=== PATIENT | female | born 1990 | race African-American/Black ===

== ENCOUNTER 2020-03-29 14:13 | Inpatient (IN) | payer OTHER, MEDICAID ==
[~2020-03-29] VITALS: Ht 170.2 cm; Wt 67.6 kg
[2020-03-29] MEDS ORDERED: METHYLPREDNISOLONE SOD SUCC 125 MG/2 ML VIAL IV STA (14:31)
[2020-03-29] MEDS ORDERED: IPRATROPIUM BROMIDE (0.02%) 0.5MG/2.5ML NEB HHN STA (14:31)
[2020-03-29] MEDS ORDERED: MAGNESIUM 2 G PREMIX 50 ML IV ONE (14:45)
[2020-03-29 14:56] LABS: CHLORIDE 108 mEq/L (98-107)
[2020-03-29] MEDS ORDERED: POTASSIUM CHLORIDE INJ 40 MEQ in DEXT 5% WATER 250 ML IV ONE (15:00)
[2020-03-29 15:09] LABS: HEMATOCRIT. 43.8 % (36.0-48.0); HEMOGLOBIN. 13.9 g/dL (12.0-16.0); MEAN CORPUSCULAR HEMOGLOBIN 27.5 pg (28.0-32.0); MEAN CORPUSCULAR VOLUME 86.3 fL (81.0-99.0); MEAN PLATELET VOLUME 9.9 fl (7.4-10.4); PLATELET 354 x1000/uL (130-400); PROTHROMBIN TIME 10.9 sec (9.6-11.0); RED BLOOD CELL COUNT 5.07 mill/uL (4.2-5.4); RED CELL DISTRIBUTION WIDTH 12.8 % (11.6-14.6)
[2020-03-29 15:24] LABS: BG BASE EXCESS -9.9 mmol/L (-2.0-2.0); BG CARBOXYHEMOGLOBIN 0.1 % (0.5-1.5); BG DEOXYHEMOGLOBIN 0.2 % (0.0-5.0); BG FRACTION INSPIRED OXYGEN 100; BG METHEMOGLOBIN 0.5 % (0.0-1.5); BG OXYGEN SATURATION 99.8 % (92.0-98.5); BG OXYHEMOGLOBIN 99.2 % (94.0-97.0); BG PCO2 47.3 mmHg (35.0-45.0); BG PH 7.199 (7.350-7.450); BG PO2 460.7 mmHg (75.0-100.0); BG SAMPLE SITE RIGHT RADIAL; BG TOTAL HEMOGLOBIN 14.3 g/dL (12.0-18.0); BG TOTAL RESPIRATORY RATE 37 b/min; BG VENT MODE MASK - BIPAP
[2020-03-29] MEDS ORDERED: SODIUM CHLORIDE 0.9% 1,000 ML IV ONE ×2 (15:30)
[2020-03-29 15:56] LABS: PLATELET ESTIMATE NORMAL
[2020-03-29] MEDS: ALBUTEROL (0.083%) 2.5MG/3ML NEB HHN SCH ×7 (16:00→19:04)
[2020-03-29] MEDS ORDERED: MORPHINE SULFATE 4 MG/ML CPJ (NOT FOR IM USE) IV ONE (16:45)
[2020-03-29] MEDS ORDERED: LORAZEPAM 2MG/ML CPJ IV ONE (17:00)
[2020-03-29 18:16] LABS: BG BASE EXCESS -12.5 mmol/L (-2.0-2.0); BG CARBOXYHEMOGLOBIN 0.3 % (0.5-1.5); BG DEOXYHEMOGLOBIN 0.8 % (0.0-5.0); BG FRACTION INSPIRED OXYGEN 60; BG HCO3 ACT 16.3 mmol/L (22.0-26.0); BG METHEMOGLOBIN 0.4 % (0.0-1.5); BG OXYGEN SATURATION 99.2 % (92.0-98.5); BG OXYHEMOGLOBIN 98.5 % (94.0-97.0); BG PH 7.141 (7.350-7.450); BG PO2 209.1 mmHg (75.0-100.0); BG SAMPLE SITE RIGHT RADIAL; BG TOTAL HEMOGLOBIN 13.5 g/dL (12.0-18.0); BG VENT MODE MASK - BIPAP
[2020-03-29] MEDS ORDERED: EPINEPHRINE 1:1000 1 MG/ML AMP IM ONE (18:30)
[2020-03-29] MEDS ORDERED: AZITHROMYCIN 500 MG in DEXT 5% WATER 250 ML IV SCH (19:00)
[2020-03-29] MEDS ORDERED: GUAIFENESIN 200MG/10ML SUGAR FREE UDC PO PRN (19:00)
[2020-03-29] MEDS ORDERED: CLONIDINE 0.1MG TABLET PO PRN (19:00)
[2020-03-29] MEDS ORDERED: POTASSIUM CHLORIDE 20MEQ TABLET SR PO NR (19:00)
[2020-03-29] MEDS ORDERED: ACETAMINOPHEN 325MG TABLET PO PRN (19:00)
[2020-03-29] MEDS ORDERED: ONDANSETRON HCL 4MG/2ML INJ IV PRN (19:00)
[2020-03-29 19:02] LABS: BG BASE EXCESS -13.4 mmol/L (-2.0-2.0); BG CARBOXYHEMOGLOBIN 0.3 % (0.5-1.5); BG DEOXYHEMOGLOBIN 0.8 % (0.0-5.0); BG FRACTION INSPIRED OXYGEN 60; BG METHEMOGLOBIN 0.6 % (0.0-1.5); BG OXYGEN SATURATION 99.2 % (92.0-98.5); BG OXYHEMOGLOBIN 98.3 % (94.0-97.0); BG PCO2 43.8 mmHg (35.0-45.0); BG PH 7.152 (7.350-7.450); BG PO2 196.4 mmHg (75.0-100.0); BG SAMPLE SITE RIGHT RADIAL; BG TOTAL HEMOGLOBIN 13.7 g/dL (12.0-18.0); BG TOTAL RESPIRATORY RATE 39 b/min; BG VENT MODE HIGH FLOW
[2020-03-29] MEDS: METHYLPREDNISOLONE SOD SUCC 125 MG/2 ML VIAL IV SCH (20:42)
[2020-03-29] MEDS: IPRATROPIUM/ALBUTEROL 0.5-3(2.5)MG/3ML NEB NEB SCH (20:54)
[2020-03-29] MEDS: SODIUM BICARBONATE 150 MEQ in DEXTROSE 5% WATER 1,000 ML IV SCH (22:49)
[2020-03-30] VITALS (12 sets, daily range): BP systolic 113–148; BP diastolic 63–90
[2020-03-30] MEDS: IPRATROPIUM/ALBUTEROL 0.5-3(2.5)MG/3ML NEB NEB SCH ×3 (00:51→01:40)
[2020-03-30] MEDS ORDERED: PRED1TAB MT (01:27)
[2020-03-30] MEDS: TRAZODONE HCL 50MG TABLET PO PRN ×2 (01:33→20:50)
[2020-03-30] MEDS: METHYLPREDNISOLONE SOD SUCC 125 MG/2 ML VIAL IV SCH ×4 (01:39→20:51)
[2020-03-30] MEDS ORDERED: LORAZEPAM 2MG/ML CPJ IV PRN ×2 (02:00→04:30)
[2020-03-30] MEDS: IPRATROPIUM BROMIDE (0.02%) 0.5MG/2.5ML NEB HHN SCH ×5 (03:20→21:02)
[2020-03-30 05:07] LABS: BG BASE EXCESS -4.4 mmol/L (-2.0-2.0); BG CARBOXYHEMOGLOBIN 0.3 % (0.5-1.5); BG DEOXYHEMOGLOBIN 0.5 % (0.0-5.0); BG FRACTION INSPIRED OXYGEN 60; BG HCO3 ACT 19.8 mmol/L (22.0-26.0); BG METHEMOGLOBIN 0.4 % (0.0-1.5); BG OXYGEN SATURATION 99.5 % (92.0-98.5); BG OXYHEMOGLOBIN 98.8 % (94.0-97.0); BG PCO2 33.7 mmHg (35.0-45.0); BG PH 7.386 (7.350-7.450); BG PO2 216.2 mmHg (75.0-100.0); BG SAMPLE SITE RIGHT RADIAL; BG TOTAL HEMOGLOBIN 12.6 g/dL (12.0-18.0); BG VENT MODE MASK - BIPAP
[2020-03-30 07:01] LABS: HEMATOCRIT. 37.7 % (36.0-48.0); HEMOGLOBIN. 12.1 g/dL (12.0-16.0); MEAN CORPUSCULAR HEMOGLOBIN 27.2 pg (28.0-32.0); PLATELET 236 x1000/uL (130-400); RED BLOOD CELL COUNT 4.43 mill/uL (4.2-5.4); RED CELL DISTRIBUTION WIDTH 12.3 % (11.6-14.6)
[2020-03-30 08:29] LABS: CHLORIDE 110 mEq/L (98-107)
[2020-03-30] MEDS: HEPARIN 5000 UNITS/ML VIAL SUBCUT SCH ×3 (09:53→20:55)
[2020-03-30] MEDS: DILTIAZEM HCL 30MG TABLET PO SCH ×2 (13:46→21:03)
[2020-03-30 14:47] LABS: PLATELET ESTIMATE NORMAL
[2020-03-30] MEDS: LORATADINE 10MG TABLET PO SCH (15:12)
[2020-03-30] MEDS: SODIUM BICARBONATE 150 MEQ in DEXTROSE 5% WATER 1,000 ML IV SCH (15:14)
[2020-03-30] MEDS: MONTELUKAST SODIUM 10MG TABLET PO SCH (17:07)
[2020-03-30 20:50] LABS: *AMPHETAMINES SCREEN URINE NEGATIVE (NEGATIVE); *BARBITURATES SCREEN URINE NEGATIVE (NEGATIVE); *BENZODIAZEPINES SCREEN URINE NEGATIVE (NEGATIVE)
[2020-03-30 20:52] LABS: METHADONE URINE SCREEN NEGATIVE (NEGATIVE); PHENCYCLIDINE URINE SCREEN NEGATIVE (NEGATIVE)
[2020-03-30 21:00] LABS: *COCAINE SCREEN URINE NEGATIVE (NEGATIVE)
[2020-03-30 21:08] LABS: CANNABINOID URINE SCREEN PRESUMTIVE POSITIVE (NEGATIVE); OPIATES URINE SCREEN PRESUMTIVE POSITIVE (NEGATIVE)
[2020-03-30] MEDS: AZITHROMYCIN 500MG in DEXTROSE 5% WATER 250ML IV SCH (21:28)
[2020-03-31] VITALS (12 sets, daily range): BP systolic 116–153; BP diastolic 64–91
[2020-03-31] MEDS: IPRATROPIUM BROMIDE (0.02%) 0.5MG/2.5ML NEB HHN SCH ×6 (00:42→20:43)
[2020-03-31] MEDS: METHYLPREDNISOLONE SOD SUCC 125 MG/2 ML VIAL IV SCH ×4 (01:52→19:55)
[2020-03-31] MEDS: SODIUM BICARBONATE 150 MEQ in DEXTROSE 5% WATER 1,000 ML IV SCH (05:16)
[2020-03-31] MEDS: DILTIAZEM HCL 30MG TABLET PO SCH (05:20)
[2020-03-31 06:50] LABS: HEMATOCRIT. 37.6 % (36.0-48.0); HEMOGLOBIN. 12.2 g/dL (12.0-16.0); MEAN CORPUSCULAR VOLUME 83.6 fL (81.0-99.0); MEAN PLATELET VOLUME 10.4 fl (7.4-10.4); PLATELET 258 x1000/uL (130-400); RED BLOOD CELL COUNT 4.49 mill/uL (4.2-5.4); RED CELL DISTRIBUTION WIDTH 12.4 % (11.6-14.6)
[2020-03-31 06:55] LABS: CHLORIDE 105 mEq/L (98-107)
[2020-03-31] MEDS: LORATADINE 10MG TABLET PO SCH (09:06)
[2020-03-31] MEDS: HEPARIN 5000 UNITS/ML VIAL SUBCUT SCH ×2 (09:07→21:28)
[2020-03-31 10:14] LABS: BG CARBOXYHEMOGLOBIN 0.2 % (0.5-1.5); BG DEOXYHEMOGLOBIN 2.1 % (0.0-5.0); BG FRACTION INSPIRED OXYGEN 36; BG HCO3 ACT 20.4 mmol/L (22.0-26.0); BG METHEMOGLOBIN 0.3 % (0.0-1.5); BG OXYGEN SATURATION 97.9 % (92.0-98.5); BG OXYHEMOGLOBIN 97.4 % (94.0-97.0); BG PCO2 25.9 mmHg (35.0-45.0); BG PH 7.514 (7.350-7.450); BG SAMPLE SITE LEFT RADIAL; BG TOTAL HEMOGLOBIN 13.9 g/dL (12.0-18.0); BG VENT MODE NASAL CANNULA
[2020-03-31] MEDS: DILTIAZEM HCL 60MG TABLET PO SCH ×2 (13:47→21:27)
[2020-03-31 16:39] LABS: PLATELET ESTIMATE NORMAL
[2020-03-31] MEDS: MONTELUKAST SODIUM 10MG TABLET PO SCH (17:03)
[2020-03-31] MEDS: AZITHROMYCIN 500MG in DEXTROSE 5% WATER 250ML IV SCH (19:55)
[2020-03-31] MEDS: TRAZODONE HCL 50MG TABLET PO PRN (21:28)
[2020-04-01] VITALS (10 sets, daily range): BP systolic 107–131; BP diastolic 64–78
[2020-04-01] MEDS: IPRATROPIUM BROMIDE (0.02%) 0.5MG/2.5ML NEB HHN SCH ×3 (00:14→13:05)
[2020-04-01] MEDS: METHYLPREDNISOLONE SOD SUCC 125 MG/2 ML VIAL IV SCH ×3 (01:40→13:16)
[2020-04-01] MEDS: DILTIAZEM HCL 60MG TABLET PO SCH ×2 (05:41→13:17)
[2020-04-01 06:33] LABS: HEMOGLOBIN. 12.1 g/dL (12.0-16.0); MEAN CORPUSCULAR HEMOGLOBIN 27.5 pg (28.0-32.0); MEAN CORPUSCULAR VOLUME 83.9 fL (81.0-99.0); MEAN PLATELET VOLUME 9.8 fl (7.4-10.4); PLATELET 268 x1000/uL (130-400); RED BLOOD CELL COUNT 4.41 mill/uL (4.2-5.4); RED CELL DISTRIBUTION WIDTH 12.6 % (11.6-14.6)
[2020-04-01 06:46] LABS: CHLORIDE 106 mEq/L (98-107)
[2020-04-01] MEDS: LORATADINE 10MG TABLET PO SCH (08:37)
[2020-04-01] MEDS: HEPARIN 5000 UNITS/ML VIAL SUBCUT SCH (08:37)
[2020-04-01 10:40] LABS: PLATELET ESTIMATE NORMAL
[2020-04-01] MEDS ORDERED: MONT10TA21 PO (11:11)
[2020-04-01] MEDS ORDERED: P50 MT (11:11)
[2020-04-01] MEDS ORDERED: FLUT1DIS3 INH (11:11)
[2020-04-01] MEDS ORDERED: DILT60TA35 PO (11:11)
[2020-04-01] MEDS ORDERED: CLAR10 PO (11:11)
[2020-04-01] MEDS ORDERED: TIOT18CA3 INH (11:11)
[2020-04-01] MEDS ORDERED: DEXTL PO (11:11)
== END 2020-04-01 14:15 | disposition home or self-care (01) | DRG 871 ==
LOC: ER 14:51 → EDBD 14:51 → 5EST 18:33 → EDBEDREQTM 18:46 → EDBEDREQ 18:46 → EDBEDREQSVC 20:23 → ENRESERV 21:51 → CANRESERV 21:51 → EDBEDREQSVC 21:55 → ENRESERV 22:39
PROVIDERS: ADMIT Internal Medicine; ATTEND Internal Medicine
PROC: 5A09357 Assistance with Respiratory Ventilation, Less than 24 Consecutive Hours, Continuous Positive Airway Pressure (ICD-10-PCS; principal; 2020-03-29)
DX: A41.9 Sepsis, unspecified organism (principal); J96.01 Acute respiratory failure with hypoxia; J96.02 Acute respiratory failure with hypercapnia; J45.901 Unspecified asthma with (acute) exacerbation; E87.4 Mixed disorder of acid-base balance; R65.10 Systemic inflammatory response syndrome (SIRS) of non-infectious origin without acute organ dysfunction; E87.6 Hypokalemia; I10 Essential (primary) hypertension; F41.9 Anxiety disorder, unspecified; F12.10 Cannabis abuse, uncomplicated; F17.200 Nicotine dependence, unspecified, uncomplicated; R00.0 Tachycardia, unspecified; Z79.899 Other long term (current) drug therapy
CPT/HCPCS: 36415; 36600; 71045; 80053; 80305; 82375; 82805; 83605; 83735; 83880; 84145; 84484; 85025; 93005; 93306; 96365; 97162; 97166; 99285; J0456; J1644; J2060; J2270; J2930; J3475; J3480; J3490; J7030; J7060; J7070